=== PATIENT | female | born 2000 | race Two or more races ===

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

== ENCOUNTER 2024-02-10 09:41 | Emergency (ER) | payer OTHER ==
[2024-02-10 10:09] VITALS: BP 114/71; PULSE 88; RESP 20; TEMP 98.7; BMI 27.1
== END 2024-02-10 11:08 | disposition home or self-care (01) ==
LOC: FER 09:41
DX: R05.9 Cough, unspecified (principal); R52 Pain, unspecified; R07.9 Chest pain, unspecified; J02.9 Acute pharyngitis, unspecified; J06.9 Acute upper respiratory infection, unspecified; Z20.822 Contact with and (suspected) exposure to COVID-19
CPT/HCPCS: 0241U-QW; 71046-TC-FY; 87651; 99284-25

== ENCOUNTER 2024-09-01 21:28 | Emergency (ER) | payer OTHER ==
[2024-09-01 21:45] VITALS: BP 114/74; PULSE 76; RESP 15; TEMP 97.3; BMI 27.8
[2024-09-01 22:30] LABS: HEMATOCRIT 38.9 % (32.4-45.2); HEMOGLOBIN 12.9 G/dL (10.7-15.3); MCH 29.3 pg (25.7-33.7); MCHC 33.2 g/dl (32.0-36.0); MEAN CELL VOLUME 88.2 fl (80-96); RBC 4.41 10^6/uL (3.60-5.2); RDW 13.5 % (11.6-15.6); WHITE BLOOD COUNT 5.3 10^3/uL (4.0-10.8)
[2024-09-01 23:04] LABS: CALCIUM 9.4 mg/dl (8.5-10.1); CREATININE 0.7 mg/dl (0.6-1.3); POTASSIUM 3.8 mmol/L (3.5-5.1)
[2024-09-01 23:05] LABS: ALBUMIN 4.2 g/dl (3.4-5.0); BILIRUBIN,TOTAL 0.3 mg/dl (0.2-1); TOT PROT 7.4 g/dl (6.4-8.2)
[2024-09-01] MEDS ORDERED: NITROFURANTOIN MONOHYD/M-CRYST 100 MG CAPSULE PO ONE (23:12)
[2024-09-01] MEDS: NITROFURANTOIN MACROCRYSTAL 50 MG CAPSULE (FP) PO SCH (23:13)
== END 2024-09-01 23:38 | disposition home or self-care (01) ==
LOC: FER 21:28
DX: N30.90 Cystitis, unspecified without hematuria (principal); M79.10 Myalgia, unspecified site; R51.9 Headache, unspecified; R10.30 Lower abdominal pain, unspecified
CPT/HCPCS: 36415; 80053; 81003; 81015; 84703; 85027; 87086; 87186; 99283-25